=== PATIENT | male | born 1990 | race Caucasian/White ===

== ENCOUNTER 2016-11-08 09:06 | Emergency (ER) | payer OTHER ==
[2016-11-08 09:12] VITALS: PULSE 69; TEMP 97.7; O2SAT 97
[2016-11-08] MEDS ORDERED: OXYCODONE/APAP 5/325 TAB PO ONE (09:32)
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
[2016-11-08 11:13] VITALS: BP 121/80; RESP 14
== END 2016-11-08 11:12 | disposition home or self-care (01) ==
DX: S63.501A Unspecified sprain of right wrist, initial encounter (principal); S50.11XA Contusion of right forearm, initial encounter; W23.0XXA Caught, crushed, jammed, or pinched between moving objects, initial encounter; Y99.8 Other external cause status; Y93.55 Activity, bike riding
CPT/HCPCS: L3807